=== PATIENT | female | born 1980 | race Caucasian/White ===

== ENCOUNTER → 2024-04-20 | Outpatient (CLI) | payer BC, SELFPAY ==
[2024-04-27 13:07] LABS: HPV APTIMA, High Risk Negative (Negative)
== END | disposition home or self-care (01) ==
LOC: LABSPEC 15:24
PROVIDERS: Referring Provider Nurse Practitioner Family; Visit Provider Nurse Practitioner Family
DX: Z12.4 Encounter for screening for malignant neoplasm of cervix (principal)
CPT/HCPCS: 87624; 88175; G0145

== ENCOUNTER → 2024-05-07 | Outpatient (CLI) | payer BC, SELFPAY ==
--- NOTE | 2024-05-07 14:53 | US_ITS ---
INDICATION: R pelvic pain; unable to locate IUD strings EXAMINATION: Ultrasound US Pelvis Non OB w/ Transvag and Vascular Doppler Complete COMPARISON: None. FINDINGS: 126 grayscale ultrasound images of the pelvis obtained both transabdominally and transvaginally. In addition dedicated ovarian color Doppler and Doppler waveform interrogation was performed. UTERUS: Uterus measures : 9.5 x 5.5 x 4.4 cm. IUD is in place within the central endometrium. Endometrial thickness of 0.6 cm. Myometrium demonstrates nabothian cysts. ADNEXA: Flow is documented to bilateral ovaries by color Doppler as well as Doppler waveform. Anechoic left ovarian 2.2 cm lesion and similar right ovarian 2.3 cm lesion. Mild cul-de-sac free fluid. US/Pelvic w/ Transvaginal IMPRESSION: Bilateral ovarian cysts measuring up to 2.3 cm. Otherwise unremarkable pelvic ultrasound. Electronically Signed: Jamal Zaidi MD at 7:53 EST ,
== END | disposition home or self-care (01) ==
LOC: US 14:52
PROVIDERS: Referring Provider Nurse Practitioner Family; Visit Provider Nurse Practitioner Family
DX: R10.2 Pelvic and perineal pain (principal); T83.32XA Displacement of intrauterine contraceptive device, initial encounter
CPT/HCPCS: 76830; 76856

== ENCOUNTER → 2024-05-22 | Outpatient (CLI) | payer BC, SELFPAY ==
[2024-05-22 10:29] LABS: Absolute Lymphocyte Count 1.31 X10^3/uL (0.83-4.51); Absolute Neutrophil Count 4.2 X10^3/uL (2.0-7.7); Basophil# 0.05 X10^3/uL; Basophil% 0.8 % (0-1); Eosinophil# 0.11 X10^3/uL; Eosinophils% 1.8 % (0-5); Hematocrit 42.2 % (37-47); Hemoglobin 13.8 g/dL (12.0-15.0); Lymphocyte # 1.31 X10^3/ul (0.83-4.51); Lymphocyte % 21.9 % (19-41); Mean Corp Hgb Conc 32.7 g/dL (32-36); Mean Corpuscular Volume 91.7 fL (81-99); Mean Platelet Vol. 8.5 fl (6.2-12.0); Monocyte# 0.29 X10^3/uL; Monocyte% 4.9 % (0-10); NRBC Flagged by Analyzer 0 % (0-5); Neutrophil # 4.17 X10^3/uL (2.7-7.7); Neutrophil % 69.9 % (47-70); Platelet Count 295 K/mm3 (150-450); RBC Distribution Width CV 11.7 % (11.6-14.6); RBC Distribution Width SD 39.2 fl (35.1-43.9)
[2024-05-22 11:26] LABS: Vitamin B12 722 pg/mL (211-911); Vitamin D,25 Hydroxy 36.1 ng/mL
[2024-05-22 11:37] LABS: ALB/GLOB Ratio 1.1 RATIO (0.9-2.4); AST(SGOT) 8 U/L (15-37); Alanine Aminotransfer ALT/SGPT 15 U/L (13-56); Albumin, Serum 3.6 g/dL (3.2-5.0); Alkaline Phosphatase 49 U/L (45-117); Anion Gap 4 (5-15); BUN 16 mg/dL (7-18); BUN/Creat Ratio 21.2 RATIO (10-20); Calcium,Total 8.7 mg/dL (8.5-10.1); Chloride 109 mmol/L (98-107); Cholesterol 112 mg/dL (200); Creatinine, Serum 0.76 mg/dL (0.55-1.02); EST Glomerular Filtration Rate 88 mL/min (>60); Est Glom Filt Rate - Afr Amer 107 mL/min (>60); Globulin 3.2 g/dL (2.2-4.2); Glucose 83 mg/dL (74-106); High Density Lipoprotein 62 mg/dL; Potassium 3.9 mmol/L (3.5-5.1); Protein, Total 6.8 g/dL (6.4-8.2); Sodium Level 140 mmol/L (136-145); T4 Free Direct 1.03 ng/dL (0.76-1.46); Triglycerides 25 mg/dL; Very Low Density Lipoprotein 5 mg/dL (5-40)
== END | disposition home or self-care (01) ==
LOC: MTLAB 07:10
PROVIDERS: Referring Provider Nurse Practitioner Family; Visit Provider Nurse Practitioner Family
DX: Z13.220 Encounter for screening for lipoid disorders (principal); Z13.1 Encounter for screening for diabetes mellitus; Z13.21 Encounter for screening for nutritional disorder; Z13.29 Encounter for screening for other suspected endocrine disorder
CPT/HCPCS: 36415; 80053; 80061; 82306; 82607; 84439; 84443; 85025

== ENCOUNTER → 2024-07-06 | Outpatient (CLI) | payer BC, SELFPAY ==
--- NOTE | 2024-07-06 07:17 | BI_ITS ---
PROCEDURE: SCRN MAMM (CAD)W/[place] BILAT REASON FOR EXAM: F, Age 44 y/o, presents for annual screening mammogram. No family history of breast cancer. TECHNIQUE: Bilateral screening digital breast tomosynthesis with 2D and 3D images. Computer aided detection. COMPARISON: 07/22/2023, 04/18/2022 FINDINGS: There are scattered areas of fibroglandular density. There is an asymmetry in the central right breast at middle depth visualized on the MLO view. No suspicious masses, areas of developing architectural distortion, or suspicious calcifications in the left breast. BI/SCRN MAMM (CAD)W/[place] BILAT IMPRESSION: The asymmetry in the central right breast at middle depth visualized on MLO vie w requires further evaluation. Recommend diagnostic mammogram of the right breast and ultrasound on the day of diagnosti c if indicated. BI-RADS 0: INCOMPLETE - NEED ADDITIONAL IMAGING EVALUATION. Follow-up code: Additional Views obtained/call backs. The patient will be notified of the results by letter. Reading Location: [id number]
== END | disposition home or self-care (01) ==
LOC: OPBI 07:17
PROVIDERS: Referring Provider Nurse Practitioner Family; Visit Provider Nurse Practitioner Family
DX: Z12.31 Encounter for screening mammogram for malignant neoplasm of breast (principal)
CPT/HCPCS: 77063; 77067

== ENCOUNTER → 2024-07-14 | Outpatient (CLI) | payer BC, SELFPAY ==
--- NOTE | 2024-07-14 09:36 | BI_ITS ---
PROCEDURE: DIAG MAMM W/CAD, UNILAT; RT BRST UNILAT [place] ADD-ON REASON FOR EXAM: RIGHT BREAST ASYMMETRY 44-year-old female presents for follow-up evaluation of the right breast finding seen on the screening mammogram of 07/06/2024. No family history of breast cancer. TECHNIQUE: Right diagnostic digital breast tomosynthesis with 2D and 3D images. Computer aided detection. COMPARISON: 07/06/2024, 07/22/2023, 04/18/2022 FINDINGS: There are scattered areas of fibroglandular density. Follow-up evaluation performed for the asymmetry in the central right breast visualized on the examination of 07/06/2024. On the present examination, the asymmetry in the central right breast at middle depth does not persist and represents benign overlapping fibroglandular tissues. Otherwise, there are no suspicious findings in the right breast. BI/DIAG MAMM W/CAD, UNILAT IMPRESSION: There is no evidence of malignancy in the right breast. BI-RADS 2: BENIGN. RECOMMEND ANNUAL MAMMOGRAPHIC SCREENING. Follow-up code: Routine Follow-up Reading Location: [id number]
--- NOTE | 2024-07-14 09:36 | BI_ITS ---
PROCEDURE: DIAG MAMM W/CAD, UNILAT; RT BRST UNILAT [place] ADD-ON REASON FOR EXAM: RIGHT BREAST ASYMMETRY 44-year-old female presents for follow-up evaluation of the right breast finding seen on the screening mammogram of 07/06/2024. No family history of breast cancer. TECHNIQUE: Right diagnostic digital breast tomosynthesis with 2D and 3D images. Computer aided detection. COMPARISON: 07/06/2024, 07/22/2023, 04/18/2022 FINDINGS: There are scattered areas of fibroglandular density. Follow-up evaluation performed for the asymmetry in the central right breast visualized on the examination of 07/06/2024. On the present examination, the asymmetry in the central right breast at middle depth does not persist and represents benign overlapping fibroglandular tissues. Otherwise, there are no suspicious findings in the right breast. BI/Rt Brst Unilat [place] Add-On IMPRESSION: There is no evidence of malignancy in the right breast. BI-RADS 2: BENIGN. RECOMMEND ANNUAL MAMMOGRAPHIC SCREENING. Follow-up code: Routine Follow-up Reading Location: [id number]
== END | disposition home or self-care (01) ==
PROVIDERS: Referring Provider Nurse Practitioner Family; Visit Provider Nurse Practitioner Family
DX: N64.89 Other specified disorders of breast (principal)
CPT/HCPCS: 77061; 77065; G0279